=== PATIENT | male | born 1975 | race African-American/Black ===

== ENCOUNTER 2018-06-21 18:35 | Emergency (ER) | payer SELFPAY ==
[~2018-06-21] VITALS: Ht 175.3 cm; Wt 95.0 kg
[2018-06-21] MEDS ORDERED: KETOROLAC TROMETHAMINE 60 MG/2 ML VIAL IM ONE (21:45)
[2018-06-22 00:14] VITALS: BP 139/89
== END 2018-06-22 00:15 | disposition home or self-care (01) ==
LOC: EDSEX 19:00 → EMS 19:00
DX: S46.211A Strain of muscle, fascia and tendon of other parts of biceps, right arm, initial encounter (principal); F12.90 Cannabis use, unspecified, uncomplicated; F17.210 Nicotine dependence, cigarettes, uncomplicated; X50.0XXA Overexertion from strenuous movement or load, initial encounter; Y93.89 Activity, other specified; Y92.89 Other specified places as the place of occurrence of the external cause; Y99.8 Other external cause status
CPT/HCPCS: 76881; 96372; 99284; J1885

== ENCOUNTER 2020-10-20 14:05 | Emergency (ER) | payer MEDICAID ==
[~2020-10-20] VITALS: Ht 175.3 cm; Wt 90.9 kg
[2020-10-20] MEDS ORDERED: PERTUSS(ACELL),DIPH,TET VAC/PF 0.5 ML SYRINGE IM ONE (14:45)
[2020-10-20] MEDS ORDERED: LIDOCAINE 1% 10 ML VIAL SQ ONE (14:45)
[2020-10-20] MEDS ORDERED: GELATIN SPONGE,ABSORBABLE 12-7 MM TP ONE (15:15)
[2020-10-20 15:43] VITALS: BP 133/84
== END 2020-10-20 15:44 | disposition home or self-care (01) ==
LOC: EMS 14:05
DX: S81.812A Laceration without foreign body, left lower leg, initial encounter (principal); F17.210 Nicotine dependence, cigarettes, uncomplicated; F12.90 Cannabis use, unspecified, uncomplicated; W45.8XXA Other foreign body or object entering through skin, initial encounter; Y93.89 Activity, other specified; Y92.89 Other specified places as the place of occurrence of the external cause; Y99.0 Civilian activity done for income or pay
CPT/HCPCS: 12001; 90471; 90715; 99283; J3490

== ENCOUNTER 2021-02-02 10:24 | Emergency (ER) | payer MEDICAID ==
[~2021-02-02] VITALS: Ht 170.2 cm; Wt 100.0 kg
[2021-02-02] MEDS ORDERED: KETOROLAC TROMETHAMINE 60 MG/2 ML VIAL IM ONE (11:45)
[2021-02-02 14:09] VITALS: BP 135/79
== END 2021-02-02 14:09 | disposition home or self-care (01) ==
LOC: EMS 10:26
DX: S69.91XA Unspecified injury of right wrist, hand and finger(s), initial encounter (principal); S69.92XA Unspecified injury of left wrist, hand and finger(s), initial encounter; M54.5 Low back pain; F17.210 Nicotine dependence, cigarettes, uncomplicated; F12.90 Cannabis use, unspecified, uncomplicated; V49.9XXA Car occupant (driver) (passenger) injured in unspecified traffic accident, initial encounter; Y93.89 Activity, other specified; Y92.89 Other specified places as the place of occurrence of the external cause; Y99.8 Other external cause status
CPT/HCPCS: 29125; 72040; 72100; 73030; 73110 ×2; 99284; J1885

== ENCOUNTER 2025-06-05 22:47 | Emergency (ER) | payer OTHER ==
[~2025-06-05] VITALS: Ht 175.3 cm; Wt 97.7 kg
[~2025-06-05 22:47] MED LIST: AMLO-257 PO; CLIN300C58 PO; LEVO750T68 PO
[2025-06-05 23:00] VITALS: BP 166/83; PULSE 102; TEMP 98.4; O2SAT 99
[2025-06-06] MEDS: LIDOCAINE 1% 10 ML VIAL SQ ONE (01:18)
[2025-06-06] MEDS ORDERED: CLIN-142 PO (01:20)
[2025-06-06] MEDS ORDERED: TRAM50TA5 PO (01:21)
[2025-06-06 01:29] VITALS: RESP 18
== END 2025-06-06 01:29 | disposition home or self-care (01) ==
LOC: EMS 22:50
DX: L02.11 Cutaneous abscess of neck (principal); L03.221 Cellulitis of neck; F17.210 Nicotine dependence, cigarettes, uncomplicated; F12.90 Cannabis use, unspecified, uncomplicated
CPT/HCPCS: 99283; 96372; J3490; 10060